=== PATIENT | male | born 1940 | race Caucasian/White ===

== ENCOUNTER 2018-04-28 08:12 | Day surgery (SDC) | payer MEDICARE, BC ==
[2018-04-28] MEDS ORDERED: TETRACAINE HCL 0.5% 15 ML OPTH BTL OPTH ONE (08:13)
[2018-04-28] MEDS ORDERED: PROPOFOL 10 MG/ML VIAL IV ONE (08:13)
[2018-04-28] MEDS ORDERED: NEOMYCIN/POLY./DEXAM OPTH OINT OPTH ONE (08:13)
[2018-04-28] MEDS ORDERED: LIDOCAINE 2% MDV (20MG/ML) 20ML VIAL IV ONE ×2 (08:13)
[2018-04-28] MEDS ORDERED: EPINEPHRINE 1 MG/ML AMPUL SQ ONE (08:13)
[2018-04-28] MEDS ORDERED: CIPROFLOXACIN HCL 0.0015 GM, PHENYLEPHRINE HCL 0.05 GM, KETOROLAC TROMETHAMINE 0.000625 GM MC ONE ×5 (15:45)
--- NOTE | 2018-04-28 16:37 | Operative Note ---
DATE OF PROCEDURE: 04/28/18. PREOPERATIVE DIAGNOSIS: Nuclear sclerotic and cortical cataract, left eye. POSTOPERATIVE DIAGNOSIS: Nuclear sclerotic and cortical cataract, left eye. OPERATION: Phacoemulsification of cataractous lens with implantation of intraocular lens. LENS IMPLANT USED: Dill Model PCB00 + 25.5 diopters. COMPLICATIONS: None. PROCEDURE IN DETAIL: Following a retrobulbar and facial block, the patient was prepped and draped in the usual fashion for eye surgery. A lid speculum was placed in the left eye after which a 2.4 mm tunnel wound was placed at the temporal limbus and dissected into clear cornea. A paracentesis was placed at 2 o'clock hours to the left and right of the initial incision and the chamber deepened with Viscoelastic. The keratome was then used to enter the anterior chamber after which the continuous circular capsulorrhexis was accomplished without difficulty using a bent needle and a Utrata forceps. Hydrodissection and hydrodelineation of the lens was performed after which the nucleus of the lens was removed using the Phaco handpiece in the [id number] technique. The residual cortical material was irrigated and aspirated from the eye after which the bag and chamber were re-examined. The bag was re-inflated with Viscoelastic and the intraocular lens injected into the capsular bag where it centered well. The Viscoelastic was then copiously irrigated and aspirated from the eye after which the temporal tunnel wound and paracentesis were hydrated and the wounds were examined. They were noted to be watertight. The lid speculum was removed from the eye and the eye patched and shielded. The patient was transferred to the recovery room in satisfactory condition and given an appointment to be reexamined in the clinic later today or as directed by Dr. Sanches. JOB NUMBER: [id number] [facility]
== END 2018-04-28 10:45 | disposition home or self-care (01) ==
LOC: SUR 08:12
PROVIDERS: ATTEND Ophthalmology
DX: H25.12 Age-related nuclear cataract, left eye (principal); I10 Essential (primary) hypertension; E78.00 Pure hypercholesterolemia, unspecified; E11.9 Type 2 diabetes mellitus without complications
CPT/HCPCS: J0171

== ENCOUNTER 2018-05-05 07:56 | Day surgery (SDC) | payer MEDICARE, BC ==
[2018-05-05] MEDS ORDERED: NEOMYCIN/POLY./DEXAM OPTH OINT OPTH ONE (07:57)
[2018-05-05] MEDS ORDERED: TETRACAINE HCL 0.5% 15 ML OPTH BTL OPTH ONE (07:57)
[2018-05-05] MEDS ORDERED: EPINEPHRINE 1 MG/ML AMPUL SQ ONE (07:57)
[2018-05-05] MEDS ORDERED: PROPOFOL 10 MG/ML VIAL IV ONE (07:57)
[2018-05-05] MEDS ORDERED: LIDOCAINE 2% MDV (20MG/ML) 20ML VIAL IV ONE ×2 (07:57)
[2018-05-05] MEDS ORDERED: CIPROFLOXACIN HCL 0.0015 GM, PHENYLEPHRINE HCL 0.05 GM, KETOROLAC TROMETHAMINE 0.000625 GM MC ONE ×5 (14:45)
--- NOTE | 2018-05-06 17:05 | OP NOTE CHAMES ---
DATE OF PROCEDURE: 05/05/2018. PREOPERATIVE DIAGNOSIS: Nuclear sclerotic cataract, right eye. POSTOPERATIVE DIAGNOSIS: Nuclear sclerotic cataract, right eye. OPERATION: Phacoemulsification of cataractous lens with implantation of intraocular lens. LENS IMPLANT USED: Dill Model PCB00 + 26.5 diopters. COMPLICATIONS: None. PROCEDURE IN DETAIL: Following a retrobulbar and facial block, the patient was prepped and draped in the usual fashion for eye surgery. A lid speculum was placed in the right eye after which a 2.4 mm tunnel wound was placed at the temporal limbus and dissected into clear cornea. A paracentesis was placed at 2 oclock hours to the left and right of the initial incision and the chamber deepened with Viscoelastic. The keratome was then used to enter the anterior chamber after which the continuous circular capsulorrhexis was accomplished without difficulty using a bent needle and a Utrata forceps. Hydrodissection and hydrodelineation of the lens was performed after which the nucleus of the lens was removed using the Phaco handpiece in the [id number] technique. The residual cortical material was irrigated and aspirated from the eye after which the bag and chamber were re-examined. The bag was re-inflated with Viscoelastic and the intraocular lens injected into the capsular bag where it centered well. The Viscoelastic was then copiously irrigated and aspirated from the eye after which the temporal tunnel wound and paracentesis were hydrated and the wounds were examined. They were noted to be watertight. The lid speculum was removed from the eye and the eye patched and shielded. The patient was transferred to the recovery room in satisfactory condition and given an appointment to be reexamined in the clinic later today or as directed by Dr. Sanches. Benjamin Sanches M.D. Date & Time JOB NUMBER: [id number] [facility]
== END 2018-05-05 10:48 | disposition home or self-care (01) ==
LOC: SUR 07:56
PROVIDERS: ATTEND Ophthalmology
DX: H25.11 Age-related nuclear cataract, right eye (principal); I10 Essential (primary) hypertension; E11.9 Type 2 diabetes mellitus without complications; E78.00 Pure hypercholesterolemia, unspecified; M19.90 Unspecified osteoarthritis, unspecified site
CPT/HCPCS: J0171

== ENCOUNTER 2018-10-06 05:28 | Day surgery (SDC) | payer MEDICARE, BC ==
[2018-10-06] MEDS ORDERED: LIDOCAINE 2% MDV (20MG/ML) 20ML VIAL IV ONE (05:29)
[2018-10-06] MEDS ORDERED: MIDAZOLAM HCL 2MG/2ML VIAL IV ONE (05:29)
[2018-10-06] MEDS ORDERED: DEXAMETHASONE 4 MG/ML 1ML VIAL IVP ONE (05:29)
[2018-10-06] MEDS ORDERED: PROPOFOL 10 MG/ML VIAL IV ONE (05:29)
[2018-10-06] MEDS ORDERED: ROPIVACAINE HCL (NAROPIN) /PF 5MG/ML 20ML VIAL IV ONE (05:29)
[2018-10-06] MEDS ORDERED: MECLIZINE 25 MG TABLET PO ONE (06:00)
[2018-10-06] MEDS ORDERED: FAMOTIDINE 20MG TABLET PO ONE (06:00)
[2018-10-06] MEDS ORDERED: CEFAZOLIN 2 Gram 2 GM/50 ML BAG IVPB ONE (06:00)
[2018-10-06] MEDS ORDERED: METOCLOPRAMIDE 10 MG TABLET PO ONE (06:00)
[2018-10-06] MEDS ORDERED: RINGERS SOLUTION,LACTATED 1,000 ML IV ONE ×3 (06:11→09:58)
[2018-10-06] MEDS ORDERED: FENTANYL PF 100MCG/2ML VIAL ONE (09:45)
[2018-10-06] MEDS ORDERED: FENTANYL PF 100MCG/2ML VIAL IVP ONE ×3 (09:50)
[2018-10-06] MEDS ORDERED: HYDROCODONE/APAP 7.5/325MG TABLET PO PRN (11:34)
[2018-10-06] MEDS ORDERED: ACETAMINOPHEN 325 MG TAB PO PRN (12:00)
[2018-10-06] MEDS ORDERED: DIPHENHYDRAMINE HCL 25 MG CAPSULE PO PRN (12:00)
[2018-10-06] MEDS ORDERED: AL HYDROX/MAG HYDROX 30ML UD PO PRN (12:00)
[2018-10-06] MEDS ORDERED: SENNOSIDES/DOCUSATE SODIUM UD CAPSULE PO PRN (12:00)
[2018-10-06] MEDS ORDERED: ZOLPIDEM TARTRATE 5 MG TABLET PO PRN (12:00)
[2018-10-06] MEDS ORDERED: OXYCODONE HCL/APAP 5MG/325MG TABLET PO PRN ×2 (12:00)
[2018-10-06] MEDS ORDERED: TRAMADOL HCL 50 MG TABLET PO PRN ×2 (12:00)
[2018-10-06] MEDS ORDERED: METOCLOPRAMIDE HCL 10 MG/2 ML VIAL IVP PRN (12:00)
[2018-10-06] MEDS ORDERED: HYDROCODONE/APAP 5/325MG TABLET PO PRN (12:00)
[2018-10-06] MEDS ORDERED: HYDROMORPHONE HCL 2 MG/ML VIAL IV PRN (12:00)
[2018-10-06] MEDS ORDERED: ONDANSETRON HCL IV 4 MG/2 ML VIAL IVP PRN (12:00)
[2018-10-06] MEDS ORDERED: CEFAZOLIN 2 Gram 2 GM/50 ML BAG IVPB SCH (12:00)
[2018-10-06] MEDS ORDERED: NALOXONE 0.4 MG/1 ML VIAL IVP PRN (12:00)
[2018-10-06] MEDS ORDERED: OXYCODONE HCL/APAP 5MG/325MG TABLET PO ONE (12:20)
--- NOTE | 2018-10-06 14:58 | Rehab Evaluation ---
Patient Information - Patient Information Diagnosis: Right Knee OA Ordered Treatment: PT Evaluate and Treat Status: Initial Evaluation Surgery: Yes (R TKA) Date of Surgery: 10/06/18 History: Detail (Pt. notes history of bilateral OA of knees, and degenerative changes of his low back.) Past Med/Laina Hx Detail: Detail (Please see medical history forms.) Past Medical/Surgical Hx: PAST MEDICAL/SURGICAL HISTORY Past Surgical History RIGHT CAT LEFT CAT REMOVAL WITH IOL 04-28-17 hernia sx x2; 1/2 of left kidney for CA 2001; colonoscopy PMH - Respiratory Hx Respiratory Disorders Yes Hx Asthma Yes: yrs ago "as kid" PMH - Cardiovascular Hx Cardiovascular Disorders Yes Hx Hypertension Yes Exercise Tolerance Good PMH - Neuro Hx Neurological Disorders Yes Hx Headaches Yes: occas PMH - GI Hx Gastrointestinal Disorders No PMH - Hx Genitourinary Disorders Yes Hx Renal Disease Yes: half of left kidney removed (CA) 2001 PMH - Endocrine Hx Endocrine Disorders Yes Hx Diabetes Yes: DX'D 2015 Hx of NIDDM Yes Comment: doesn't check blood sugar daily PMH - Musculoskeletal Hx Musculoskeletal Disorders Yes Hx Arthritis Yes: RIGHT KNEE PMH - Psych Hx Psychiatric Problems No PMH - Hematology/Oncology Hx Hematology/Oncology Yes Disorders Hx Cancer Yes: lt kidney Hx Chemotherapy No Hx Radiation Therapy No Premorbid Status: Detail (Worsening of sx secondary to wear and tear.) Social History: Detail (Pt. lives with his significant other in a mobile home, with three steps leading into the home. Pt. has a standard walker, single point cane, Tub/shower combo with elevated toilet and grab bars. Pt. is retired. Pt. is to have outpatient PT next week at [facility].) Precautions: [place], Fall - Time With Patient Total Time Spent With Patient (Min): 45 Treatment Procedures: Detail (Physical Therapy Evaluation Completed. Pt. was left supine with call light available, B IPC, cryo RLE, and nursing was notified of pt. status.) Subjective Information - Subjective Information Per Patient Objective Data - Pain Pain Present: Yes Pain Scale Used: Numeric (1 - 10) (4/10) - Mental Status Patient Orientation: Oriented x3 - Visual Perception Appears within normal limits for therapeutic activities - ROM Not within normal limits (Right knee flexion and extension ROM limited secondary to pain and recent surgery.) - Strength/Tone Not within normal limits (BUE 5/5 grossly. LLE 5/5 for quadriceps, hamstrings, and glutes. Pt. able to independently perform SLR with RLE for one repetition.) - Coordination Appears within normal limits for therapeutic activities - Bed Mobility Needs Assist (Pt. required min assist x1 with repositioning in bed from edge to center.) - Transfers Needs Assist (Min assist x1 with supine to sit transfer. CGA with sit to stand and stand to sit transfer. Min assist x1 with seated to supine transfer. Pt. required use of trapeeze and hooking of his LE for transfer supine<->seated.) - Balance Balance Sitting: Good Balance Standing: Fair - Sensation Intact - Gait Detail (Pt. independently ambulated ~8 feet away from and back to bed with front wheeled walker. Pt. required verbal cues for placement of operative LE when advancing walker.) - ADL's/IADL's Detail (Pt. was not assessed for bathroom use or donning/doffing dressings.) - Special Tests Yes (Negative Homans) Therapy Assessment - Therapy Assessment Detail (Pt. exhibits good positioning of his operative LE with bed mobility and transfer following verbal cues, and tolerated ambulation with no complications. Pt. is a good candidate to pass all goals for inpatient PT within 1-2 days and transition to outpatient PT next week.) Patient Education - Patient Education Teaching Topic: Community Resources, Disease Process, Exercise/Activity, Precautions, Risk Factors Response: Return Demonstration Teaching Method: Discussion Teaching Recipient: Patient, Family Barriers To Learning: None Problem List - Problem List Physical Therapy Problem List: Detail (1) RLE weakness 2) RLE ROM restriction 3) Assistance required with bed mobility and transfer 4) Poor standing balance) Occupational Therapy Problem List: Detail Goals - Goals Physical Therapy Goals: 1) Pt. will independently ambulate household distances with proper gait mechanics using AD. 2) Pt. will independently ambulate up and down three steps with AD using proper gait mechanics. 3) Pt. will be independent with bed mobility and transfer. 4) Pt. will verbalize good understanding of D/C precautions and HEP. Prognosis - Prognosis Good Plan - Plan Physical Therapy Plan: Pt. will be seen 1-2x per day, M-F for inpatient PT until goals met.
[2018-10-06] MEDS: CEFAZOLIN 2 Gram 2 GM/50 ML BAG IVPB SCH ×2 (16:32→23:54)
[2018-10-06] MEDS: RINGERS SOLUTION,LACTATED 1,000 ML IV SCH (16:48)
[2018-10-06] MEDS: ASPIRIN 325 MG TAB ENTERIC-COATED PO SCH (22:23)
[2018-10-06] MEDS: HYDROCODONE/APAP 5/325MG TABLET PO PRN (23:49)
[2018-10-07] MEDS: RINGERS SOLUTION,LACTATED 1,000 ML IV SCH (06:37)
[2018-10-07 07:49] LABS: HEMOGLOBIN 12.2 gm/dl (14.0-18.0); MEAN CELL VOLUME 89.2 fl (81-97); MEAN PLATELET VOLUME 9.3 fl (7.4-10.4); PLATELET COUNT 212 K/uL (130-400); RED BLOOD COUNT 4.15 M/uL (4.40-5.70); RED CELL DISTRIBUTION WIDTH 12.6 % (11.5-14.5); WHITE BLOOD COUNT W/O DIFF 12.8 K/uL (4.2-12.2)
[2018-10-07 08:03] LABS: MEAN CORPUSCULAR HEMOGLOBIN 29.3 pg (27-33)
[2018-10-07] MEDS: HYDROCODONE/APAP 5/325MG TABLET PO PRN ×2 (08:04→11:57)
[2018-10-07] MEDS: CEFAZOLIN 2 Gram 2 GM/50 ML BAG IVPB SCH (08:06)
--- NOTE | 2018-10-07 09:00 | Operative Note ---
DATE OF SURGERY: 10/06/2018 SURGEON: Savage Galvez DO PREOPERATIVE DIAGNOSIS: Osteoarthritis of the right knee. POSTOPERATIVE DIAGNOSIS: Osteoarthritis of the right knee. OPERATION: Right total knee arthroplasty. DESCRIPTION OF PROCEDURE: This 77-year-old male was taken to the operating room and placed in the supine position on the operating room table. General anesthetic was administered. The right lower extremity was elevated. It was prepped with Hibiclens and draped in the usual sterile fashion. It was exsanguinated and the tourniquet inflated to 300 mmHg. All scrub personnel wore personal isolation suits. An anterior longitudinal midline incision was made followed by a medial parapatellar arthrotomy incision. An intracondylar drill hole was made for the intramedullary alignment tomasa. The distal femoral cutting block was affixed at a 10 mm cut and 6-degree valgus because of the patient's slight flexion contracture. The cut was then made and the sizing jig was affixed. A size 67.5 was seen to be the appropriate size. The 4-in-1 cutting block was pinned in 3 degrees of external rotation. The appropriate cuts were made. Wafer of bone was removed. We then directed our attention to the proximal tibia, and an extramedullary alignment guide was used to cut the proximal tibia referencing a 10 mm cut off the lateral tibial plateau. The appropriate cut was made but it was seen to be not nearly enough bone because of the bone loss in the medial tibial plateau and an additional 4 mm of bone was taken and the wafer of bone was removed. The remnants of the menisci and osteophytes were removed from the posterior aspect of the joint. The sizing jig for the tibia was used and a 75 was seen to be the appropriate size and the punch was used in the proximal tibia. All remnants of the menisci and osteophytes in the posterior aspect of the joint were removed. The wound was copiously irrigated with lactated Ringer's solution. Trials were inserted and a size 12 bearing was seen to be the appropriate size. The patella was cut and restored to anatomic height with a 37 x 8.6 mm patella. The knee was taken through range of motion with found to be stable. The wound was then copiously irrigated with lactated Ringer's solution after all trial components had been removed. Once all the debris had been removed from the joint, the bony surfaces were dried and all components were cemented into place and excess cement removed after the insertion of each component. Initially, the tibia was cemented followed by the insertion of the tibial bearing followed by the femur and subsequently the patella. Once the cement had hardened, the knee was again taken through range of motion and felt to be stable throughout the full range of motion. The drain was placed through a separate stab incision, and the arthrotomy incision was closed with a #2 Vicryl. The subcutaneous tissue was closed with 0 Vicryl and the skin was stapled. Sterile dressings applied. Polar Care was used and the patient taken to the recovery room in satisfactory condition. GROSS PATHOLOGY: This patient had severe medial compartment osteoarthritis. Because of the bone loss medially, it was necessary for us to take additional bone. The final components inserted were a [employer] Vanguard size 67.5 cruciate retaining femur, a 75 tibial baseplate, a 12 mm anterior stabilized bearing, and a 37 x 8.6 mm patella was used. KYARA
[2018-10-07] MEDS ORDERED: MELOXICAM 7.5 MG TABLET PO SCH (10:00)
[2018-10-07] MEDS ORDERED: SIMVASTATIN 20 MG TABLET PO SCH (10:00)
[2018-10-07] MEDS ORDERED: MULTIVITAMINS/MINERALS TABLET PO SCH (10:00)
[2018-10-07] MEDS ORDERED: METFORMIN 500 MG TABLET PO SCH (10:00)
[2018-10-07] MEDS ORDERED: LISINOPRIL 20 MG TABLET PO SCH (10:00)
--- NOTE | 2018-10-07 10:04 | Physical Therapy Tx Note ---
Physical Therapy Tx Note - Treatment Note Tolerated: Good (Pt. performed all PT skills appropriately without complication s.) Total Time Spent With Patient: 30 Physical Therapy Tx Note: Detail (Pt. independently and appropriately ambulated 108 feet with front wheeled walker. Pt. independently ambulated up and down three steps with front wheeled walker, verbalizing good understanding of LE advancement and walker positioning. Pt. independently performed bed mobility, tr ansfers to and from bed, transfers to and from chair. Pt. performed 5 repetitions of SLR with therapist assistance and VC for quadriceps contracture. Pt. verbalized good understanding of HEP consisting of heel slides, quad sets, ankle pumps, gluteal sets, and seated knee flexion stretching. Pt. was left seated in chair with cryo at RLE, call light available, and nursing was notified of pt.'s status.) Physical Therapy Problem List: Detail (Pt. no longer requires inpatient PT.) Physical Therapy Goals: 1) Pt. will independently ambulate household distances with proper gait mechanics using AD. (met). 2) Pt. will independently ambulate up and down three steps with AD using proper gait mechanics. (met). 3) Pt. will be independent with bed mobility and transfer. (met). 4) Pt. will verbalize good understanding of D/C precautions and HEP. (met) Prognosis: Good (Pt. appropriate for D/C from inpatient PT.) Physical Therapy Plan: D/C pt. from inpatient PT.
--- NOTE | 2018-10-07 10:11 | Rehab Evaluation ---
Patient Information - Patient Information Diagnosis: Right Knee OA Ordered Treatment: OT Evaluate and Treat Status: Initial Evaluation Surgery: Yes (R TKA) Date of Surgery: 10/06/18 History: Detail (Pt. notes history of bilateral OA of knees, and degenerative changes of his low back.) Past Medical/Surgical Hx: PAST MEDICAL/SURGICAL HISTORY Past Surgical History RIGHT CAT LEFT CAT REMOVAL WITH IOL 04-28-17 hernia sx x2; 1/2 of left kidney for CA 2001; colonoscopy PMH - Respiratory Hx Respiratory Disorders Yes Hx Asthma Yes: yrs ago "as kid" PMH - Cardiovascular Hx Cardiovascular Disorders Yes Hx Hypertension Yes Exercise Tolerance Good PMH - Neuro Hx Neurological Disorders Yes Hx Headaches Yes: occas PMH - GI Hx Gastrointestinal Disorders No PMH - Hx Genitourinary Disorders Yes Hx Renal Disease Yes: half of left kidney removed ([place]) 2001 PMH - Endocrine Hx Endocrine Disorders Yes Hx Diabetes Yes: DX'D 2015 Hx of NIDDM Yes Comment: doesn't check blood sugar daily PMH - Musculoskeletal Hx Musculoskeletal Disorders Yes Hx Arthritis Yes: RIGHT KNEE PMH - Psych Hx Psychiatric Problems No PMH - Hematology/Oncology Hx Hematology/Oncology Yes Disorders Hx Cancer Yes: lt kidney Hx Chemotherapy No Hx Radiation Therapy No Premorbid Status: Detail (Pt lives with spouse in a mobile home. He has 3 steps, a landing and 1 step with 1 hand railing at the entrance. He has a tub/shower combination with grab bar but no seat and an elevated toilet without grab bars. He is typically responsible for yard work and his does all of the indoor IADLs. He has a standard walker.) Social History: Detail (Pt reports his will assist as needed.) Precautions: [place], Fall, Other (WBAT right LE) - Time With Patient Total Time Spent With Patient (Min): 40 Treatment Procedures: Detail (OT eval low complexity) Subjective Information - Subjective Information Per Patient Objective Data - Pain Pain Present: Yes () - Mental Status Patient Orientation: Oriented x3 - Visual Perception Appears within normal limits for therapeutic activities - ROM Within normal limits (Akbar UE AROM WNL) - Strength/Tone Within normal limits (Akbar UE strength WNL) - Coordination Appears within normal limits for therapeutic activities - Bed Mobility Independent (Ind with supine to sit and sit to supine) - Transfers Independent (Ind with sit to stand from EOB and chair heights.) - Balance Balance Sitting: Good Balance Standing: Good - Sensation Intact - Gait Detail (Pt ambulating in room and hallway with 2 wheeled walker Indly.) - ADL's/IADL's Detail (Pt educated and able to demonstrate learning of modified LE dressing techniques including doffing slipper socks and donning shorts and slip on shoes. Reviewed kitchen and shower safety and modifications, pt able to verbalize understanding.) Therapy Assessment - Therapy Assessment Detail (Pt is Ind with modified LE dressing techniques.) Problem List - Problem List Physical Therapy Problem List: Detail (1) RLE weakness 2) RLE ROM restriction 3) Assistance required with bed mobility and transfer 4) Poor standing balance) Occupational Therapy Problem List: Detail (No current IP OT problems identified.) Goals - Goals Physical Therapy Goals: 1) Pt. will independently ambulate household distances with proper gait mechanics using AD. 2) Pt. will independently ambulate up and down three steps with AD using proper gait mechanics. 3) Pt. will be independent with bed mobility and transfer. 4) Pt. will verbalize good understanding of D/C precautions and HEP. Occupational Therapy Goals: No current IP OT goals identified. Prognosis - Prognosis Good Plan - Plan Physical Therapy Plan: Pt. will be seen 1-2x per day, M-F for inpatient PT until goals met. Occupational Therapy Plan: No further IP OT recommended. Thank you for this referral.
[2018-10-07] MEDS: ASPIRIN 325 MG TAB ENTERIC-COATED PO SCH (10:52)
--- NOTE | 2018-10-07 18:30 | Discharge Summary ---
DATE OF ADMISSION: 10/06/2018 DATE OF DISCHARGE: 10/07/2018 ADMITTING DIAGNOSIS: Osteoarthritis of the right knee. DISCHARGE DIAGNOSIS: Osteoarthritis of the right knee. OPERATIVE PROCEDURE: Elective right total knee arthroplasty. HOSPITAL COURSE: This 77-year-old male was admitted to the hospital for elective total knee arthroplasty and tolerated the operative procedure well. He states that his pain is well controlled. He does not give any symptoms or sign of complication. Calf is soft and no shortness of breath, chest pain. The patient has ambulated well with physical therapy and cleared physical therapy and is ready for discharge. The patient will wear his INES hose during the day and remove them at night. He will have outpatient physical therapy. He was instructed to take aspirin 325 mg daily. He will take [place] 5/325, #40, 1 or 2 every 6 hours as necessary for pain. Routine wound care instructions were given. He will follow up in the clinic in 2 weeks. Should he have any problems prior to being seen, he was instructed to call my office. KYARA
== END 2018-10-07 14:00 | disposition home or self-care (01) ==
LOC: SUR 05:28 → MEDSURG 10:42 → SUR 10-07 14:00
PROVIDERS: ATTEND Orthopaedic Surgery
DX: M17.11 Unilateral primary osteoarthritis, right knee (principal); I10 Essential (primary) hypertension; E78.00 Pure hypercholesterolemia, unspecified; E11.9 Type 2 diabetes mellitus without complications; E78.5 Hyperlipidemia, unspecified
CPT/HCPCS: 27447; 01402; 64447; 85025; 36416; 82948; 76942; J3010; J0690 ×2; J2795; J7120